=== PATIENT | female | born 1985 | race Caucasian/White ===

== ENCOUNTER 2024-10-27 10:15 | Emergency (ER) | payer SELFPAY ==
--- NOTE | ~2024-10-27 | CT_ITS ---
EXAM: CT brain wo con, CT cervical spine wo con - 10/27/2024 10:20 CDT HISTORY: 39 years old Female with fall COMPARISON: 02/09/2015 PROCEDURE: CT of the head and cervical spine without contrast. Axial, sagittal and coronal reformat darrell planes were evaluated. Automatic exposure control was used for this study. FINDINGS: CT HEAD: BRAIN PARENCHYMA: No acute hemorrhage. No mass effect or herniation. Vanessa-white matter differentiatio n is maintained. Normal appearance of cortex. VENTRICLES/ EXTRA-AXIAL SPACES: No hydrocephalus or extra-axial fluid collection. EXTRACRANIAL STRUCTURES: No calvarial fracture. CT CERVICAL SPINE: No acute fracture or subluxation. Straightening of cervical lordosis, likely positional or may be rel ated to muscle spasm. Multilevel degenerative changes are seen in the cervical spine. Prevertebral so ft tissues are within normal limits. Visualized lung apices are clear. IMPRESSION: 1. No evidence for acute intracranial hemorrhage or calvarial fracture. 2. No evidence for cervical spine fracture or traumatic subluxation. Reviewed, dictated and finalized at location A. IMPRESSION: 1. No evidence for acute intracranial hemorrhage or calvarial fracture. 2. No evidence for cervical spine fracture or traumatic subluxation.
[2024-10-27 10:16] VITALS: BP 97/58; PULSE 72; RESP 16; TEMP 36.6; O2SAT 92
--- NOTE | 2024-10-27 11:03 | PC.NURSE ---
Pt seen by this RN ambulating out of ER with steady gait.
--- OUTSIDE RECORDS SUMMARY | 2024-10-27 13:17 | XMS_ITS | Clinical Summary ---
Author Organization [facility] Address [address] [place] [id number] Care Team Providers Care Superintendent Division Name Role Phone Mario Haider MD Primary Care Provider [phone] Allergies Active Allergy Reactions Criticality Noted Date Comments Penicillins Hives 01/13/2019 Medications No known medications Active Problems Problem Noted Date Diagnosed Date Cellulitis 04/01/2022 Family History Medical History Relation Comments COPD Father Cancer Mother Relation Status Comments Father Alive Mother Alive Social History Tobacco Use Types Packs/Day Years Used Date Smoking Tobacco: Every Day Cigarettes Smokeless Tobacco: Never Tobacco Cessation:Ready to Q uit: Not Asked; Counseling Given: Not Answered Alcohol Use Standard Drinks/Week Comments Not Currently 0 (1 standard drink = 0.6 oz pur e alcohol) Comments No Sex and Gender Information Value Date Recorded Sex Assigned at Not on file Legal Sex Female 4:58 PM CDT Gender Identity Not on file Sexual Orientation Not on file Last Filed Vital Signs Vital Sign Reading Time Taken Comments Blood Pressure 122/80 08/29/2022 3:00 AM CDT Pulse 84 08/29/2022 3:00 AM CDT Temperature 36.2 C (97.2 F) 08/29/2022 3:00 AM CDT Respiratory Rate 16 08/29/2022 3:00 AM CDT Oxygen Saturation 100% 08/29/2022 3:00 AM CDT Inhaled Oxygen Concentration - - Weight 60 kg (132 lb 4.4 oz) 08/29/2022 1:10 AM CDT Height 154.9 cm (5' 1) 08/29/2022 1:10 AM CDT Body Mass Index 24.99 08/29/2022 1:10 AM CDT Plan of Treatment Health Maintenance Due Date Last Done Comments Annual Physical 07/18/1987 Hepatitis C 2002 DTaP, Tdap and Td Vaccines ( 1 - Tdap) 07/18/2003 Hepatitis B Vaccines (1 of 3 - 19+ 3-dose series) 07/18/2003 Pneumococcal Vaccine: Pediat rics (0 to 5 Years) and At-Risk Patients (6 to 49 Years) (1 of 2 - PCV) 07/18/2003 HPV Vaccines (1 - 3-dose SCD M series) 07/18/2011 COVID-19 Vaccine (1 - 2023-2 5 season) 2023 Mammogram Screening 2024 Meningococcal B Vaccine Aged Out No l onger eligible based on patient's age to complete this topic Meningococcal Vaccine Aged Out No ziyad radha eligible based on patient's age to complete this topic RSV Immunizations Under 20 Months Aged Out No longer eligible based on patient's age to complete this topic Insurance [facility] [place] Advance Directives * Full Code (Latest Code Status on File) Date Activated Date Inactivated Comments 04/01/2022 9:43 AM 04/03/2022 1:37 PM Care Teams Superintendent Division Relationship Specialty Start Date End Date Mario Haider MD PCP - General 04/17/15
--- OUTSIDE RECORDS SUMMARY | 2024-10-27 13:17 | XMS_ITS | Continuity of Care Document ---
Author Organization [facility] Address [address] [place] [address] Phone Care Team Providers Care Operations Examiner Name Role Phone Mario Haider MD Unavailable Unavailable Allergies, Adverse Reactions, Alerts Substance Reaction Status Criticality penicillin G Active No Information Medications Medication Instructions Dosage Effective Dates (start - stop) Status Comments Paxil 20 mg tablet take 2 tablet by ora l route every day 40 MG - Active Adderall 20 mg tablet take 1 tablet by o ral route every day before breakfast 20 MG - Active Lamictal 100 mg tablet take 1 tablet by oral route 2 times every day 100 MG - Active Procedures Procedure Date PREV VISIT, EST, AGE 18-39 OFFICE/OUTPATIENT VISIT, EST PREV VISIT, EST, AGE 18-39 OFFICE/OUTPATIENT VISIT, EST OFFICE/OUTPATIENT VISIT, EST OFFICE/OUTPATIENT VISIT, EST OFFICE/OUTPATIENT VISIT, EST PREV VISIT, EST, AGE 18-39 PREV VISIT, EST, AGE 18-39 OFFICE/OUTPATIENT VISIT, EST OFFICE/OUTPATIENT VISIT, EST Advance Directives Directive Yes / No Effective Date File Name No Information Encounters Encounter Description Practice Location Reason(s) For Visit Diagnoses Date Provider Providers Copied on Encounter PREV VISIT, EST, AGE 18-39 [facility], [address] [place], [id number], [place] tel:[phone] [facility] Physical (chief complaint) Encntr for general adult medical exam w/o abnormal findings 201 [address] Vitaly Martin. [address], [place], [place], [id number] , [place]. [phone] Referring Provider: Drea Walker [address], [place], [place], [address]. tel:[phone] OFFICE/OUTPA TIENT VISIT, EST [facility], [place], [address], [place], [place], [id number], [place] tel:[phone] [facility] [place] depression 1 (chief complaint) epilepsy (chief complaint) alcohol abuse1 (chief complaint) Epilepsy, not intractable, without status epilepticusGenerali zed anxiety disorderDepressionA lcohol abuse 6 Vitaly Martin. [address], [place], [place], [address] , [place]. [phone] Referring Provider: Drea Walker [address], [place], [place], [address]. tel:[phone] PREV VISIT, EST, AGE 18-39 [facility] [place], [address], [place], [place], [address], [place] tel:[phone] [facility] [place] PHysical (chief complaint) Encntr for general adult medical exam w/o abnormal findings 6 Vitaly Martin. [address], [place], [place], [address] , [place]. [phone] Referring Provider: Drea Walker [address], [place], [place], [address]. tel:[phone] OFFICE/OUTPA TIENT VISIT, EST [facility] [place], [address], [place], [place], [address], [place] tel:[phone] [facility] [place] seizure1 (chief complaint) seizure (chief complaint) GI (chief complaint) SOB (chief complaint) Generalized anxiety disorderEpilepsy, unspecified, not intractable, without status epilepticus 6 Vitaly Martin. [address], [place], [place], [address] , [place]. [phone] Referring Provider: Mario Haider, [address], [place], [place], [address]. tel:[phone] OFFICE/OUTPA TIENT VISIT, [facility], [address], [place], [place], [address], [place] tel:[phone] [facility] [place] stomach (chief complaint) seizure (chief complaint) seizure1 (chief complaint) anxiety1 (chief complaint) Generalized abdominal painGeneralized (acute) peritonitisGenerali zed anxiety disorderEpilepsy, not intractable, without status epilepticus 5 Vitaly Martin. [address], [place], [place], [address] , [place]. [phone] Referring Provider: Drea Walker [address], [place], [place], [address]. tel:[phone] OFFICE/OUTPA TIENT VISIT, [facility], [address], [place], [place], [address], [place] tel:[phone] [facility] [place] cough (chief complaint) cold sore (chief complaint) Anxiety (chief complaint) seizure (chief complaint) Generalized anxiety disorderEpilepsyAcu te bronchitisCold sores 5 Vitaly Martin. [address], [place], [place], [address] , [place]. [phone] Referring Provider: Drea Walker [address], [place], [place], [address]. tel:[phone] OFFICE/OUTPA TIENT VISIT, [facility], [address], [place], [place], [address], [place] tel:[phone] [facility] [place] back pain (chief complaint) anxiety (chief complaint) seizure (chief complaint) Epilepsy, unspecified, without mention of intractable epilepsyGeneralized anxiety disorderLumbagoVita min deficiency 5 Vitaly Simmons [address], [place], [place], [address] , [place]. tel:[phone] Referring Provider: Drea Walker [address], [place], [place], [address]. tel:[phone] PREV VISIT, EST, AGE 18-39 [facility] [place], [address], [place], [place], [address], [place] tel:[phone] [facility] PHysical (chief complaint) Routine Medical ExamRoutine Medical Exam 5 Vitaly Martin. [address], [place], [place], [address] , [place]. tel:[phone] Referring Provider: Mario Haider [address], [place], [place], [address]. tel:[phone] PREV VISIT, EST, AGE 18-39 [facility] [place], [address], [place], [place], [address], [place] tel:[phone] [facility] Physical (chief complaint) Routine Medical ExamRoutine Medical Exam 3 Vitaly Martin. [address], [place], [place], [address] , [place]. tel:[phone] Referring Provider: Mario Haider, [address], [place], [place], [address]. tel:[phone] OFFICE/OUTPA TIENT VISIT, EST [facility] [place], [address], [place], [place], [address], [place] tel:[phone] [facility] [place] toothache (chief complaint) Atypical face pain 2 Vitaly Martin. [address], [place], [place], [address] , [place]. tel:[phone] Referring Provider: Mario Haider [address], [place], [place], [address]. tel:[phone] OFFICE/OUTPA TIENT VISIT, EST [facility] [place], [address], [place], [address], [place] tel:[phone] [facility] anxiety (chief complaint) Generalized anxiety disorderEpilepsy, unspecified, without mention of intractable epilepsy 2 Vitaly Martin. [address], [place], [place], [address] , [place]. tel:[phone] Referring Provider: Drea Walker [facility] [address], [place], [place], [address]. tel:[phone] Family History Family Member Type Diagnosis Age At Onset Mother Problem (finding) Alive and well Sister Problem (finding) Depression Father Problem (finding) Seizure disorder Payers Payer name Insurance type Covered republican ID Authoriza tion(s) No Information Social History Type Description Quantity Date Captured Comments Alcohol Use Details Caffeine Use Details Unknown Tobacco Use Status Smoker Smoking Status Current some day smoker 017 Sex Female Vital Signs Date / Time: Height Weight BMI Pulse Rate Blood Pressure Temperature Respiratory Rate Body Surface Area Head Circumference BMI percentile Pulse Ox Inhaled Ox 2:34 PM 157.48 cm 109.60 lbs 20.0 5 kg/m eter (2) 91 /min 114/78 mm[Hg] 98.0 F 16 /min Chief Complaint And Reason For Visit From encounter dated '12/18/2016 13:45'. Physical (chief complaint). Description: Pt needs annual physical. Pt has chronic anxiety and depression. Pt takes paxil. Pt denies any suicidal or homicidal thought. Pt denies any crying spells. Pt sees psychiatrist and she is getting adderall from her psychiatrist for ADD. Pt also has pseudoseizure. Pt had seizure again two week ago. Pt apparently had grand mal seizure. Pt just moved back from [place]. Pt was seeing neurology at [place] and had some testing but she has no idea what the name of the nurologist and what the testing she had? Pt wants lamictal again. Pt is off keppra. Pt denies any other compalints Plan Of Treatment Date Type Action Status Goal Tobacco cessation counseling completed Goal Tobacco cessation counseling completed Goal Tobacco cessation counseling completed Goal Tobacco cessation counseling completed Referral Ordered: Jeaneth Finn (related to Encounter for general adult medical exam w abnormal findings) ordered Referral Referred To: Jeaneth Finn [address] [place], [phone] Ordered: Referrals: Jeaneth Finn. Evaluate and treat ordered Referral Ordered: Gastroenterology (related to Generalized (acute) peritonitis) ordered Referral Ordered: OBSTRUCTIVE SERIES XRAY ordered Referral Ordered: Referrals: Gastroenterology. Evaluate and treat ordered Referral Ordered: Physical Therapy ordered Referral Ordered: LUMBAR XRAY AP AND LAT ONLY ordered Referral Referred To: Physical Therapy Ordered: Referral: Physical Therapy. ordered History Of Present Illness Encounter Date Complaint History Of Prese nt Illness Physical Pt needs annual physical. Pt has chronic anxiety and depression. Pt takes paxil. Pt denies any suicidal or homicidal thought. Pt denies any crying spells. Pt sees psychiatrist and she is getting adderall from her psychiatrist for ADD. Pt also has pseudoseizure. Pt had seizure again two week ago. Pt apparently had grand mal seizure. Pt just moved back from [place]. Pt was seeing neurology at [place] and had some testing but she has no idea what the name of the nurologist and what the testing she had? Pt wants lamictal again. Pt is off keppra. Pt denies any other compalints alcohol abuse1 Pt recenlty went to ER for alcohol abuse and also seizure. Pt told me she drinks alcohol to help her with severe anxeity and sterss. Pt told me she will not drink alcohol if she has stronger anxiety meds epilepsy Additional infor claudia: Pt tani made appointment to see neurologist at [facility]. depression1 Pt has chronic a nxiety and depression. Pt was recently admited to hospital for suicidal thought and also seizure? Pt was diagnosed with psychiatric pseudoseizure and she was on suidical watch lately. Pt states that she has severe stress and anxiety and she needs something stronger than ativan? Pt denies any suicidal or homicidal thought now PHysical Pt needs annual physical. Pt has history of recurrent grand mal seizure. Pt has not had any seizure for 3 months until recently. Pt went to [place] [facility]. Pt takes lamictal 100 mg BID. Pt been to mutiple neurologists in the past. She states that all neurologist told her that there is nothing wrong with her?? Pt told me she had MRI of brain and EEG done back in April at [facility] and she seen a neurologist as an outpatient but she has no idea the name of the neurologist. Pt is extremely poor historian. Pt denies any headahe. Pt also has chornic anxiety an ddepression and she takes paxil and doing ok. PT denie sany suicidal or homicidal thought. SOB Pt has frequent SOB Pt smokes. Pt uses inhaler PRN PT denies any acute SOB. Pt feels SOB 2-3 times per day. seizure Additional infor claudia: Pt has recurrent seizure,. Pt has been to multiple ER recently and she seen a neurologist whom she does not know the name and was started on a different seizure meds which she also does not know the name. Pt has not had any seizure for 4 weeks now. seizure1 Pt has chronic a nxiety and depression. Pt has been out of paxil and xanax for a while. Pt denies any suicidal or homicidal thought. Pt no longer takes xanax. She is on ativan now due to recurrent seizures. GI Pt denies any GI symptoms anymore. Pt supposes to have colonoscopy but she never did. Pt does not have any symptoms anymore. NO abd pain anxiety1 Pt has chronic a nxiety and depression. Pt takes paxil and xanax and doing ok. Pt denies any suicidal or homicidal thought. Pt denies any crying spells. Pt denies feeling of hopelessness seizure1 Pt has history o f seizure. Pt has been on keppra for several at least 6 months. Pt has not had any seizure. Pt recently was admited n hospital due to perotonitis due to vaginal cuff infection and she appararently had a brief syncope episodes. Pt did not have any confirmed seizure. Pt was restarted on depakote again in hospital. Pt does not want depakote seizure stomach Pt had partial h ysterectomy on 11/30/14. Pt was doing ok until last Friday. She went to ER due to blood vomitus and severe low pelvic pain. Pt was found to have vaginal cuff tear. Her MEAT WASHER subsequently repaired it. Pt was planned to be discharged the next day and then she had a breif syncope episode. Pt was found to have ileus. NG tube placed. Pt currntly feels full all the time and her stomach feels distended, Pt denies any nausea, vomiting. Pt is able to keep food and water down. Pt still taking levaquin and flagyl. Pt has been having nonbloody watery diarrhea. Pt states that she has not been passing gas. Pt feels gas pain around stomach,. No fever, chill seizure Additional infor mation: Pt denies any seizure for seveal months. Anxiety The patient pres ents with anxious/fearful thoughts but denies fatigue. The patient denies any headache, vomiting and weight gain. Additional information: Pt has chronic anxiety and depression Pt takes paxil and xanax. pt denies any suicidal thought. cold sore PT notices a col d sore on top of lip for several days with some numbness and tingling around the upper lip area cough Associated sympt oms include cough. Pertinent negatives include dyspnea, fatigue, fever, night sweats, sinus pressure, sore throat, weight loss and wheezing. Additional information: Pt has acute coughing with phlem for several days. pt notices clear and yellow phlem. pt denies any sore throat or any sinus problem. Pt denies any fever. seizure Additional infor mation: Pt is taking keppra. No seizure. anxiety Additional infor mation: Pt has chronic aniety and depression. Pt takes paxil and xanax and doing ok. Pt denies any suicidal thought. back pain Additional infor mation: Pt has chornic LBP. Pt states that someday she canot get out of bed. Pt denies any loss of bowel or bladder control Pt has sciatica. Instructions Date Instruction Additional Infor mation Quit smoking. Related to Encnt r for general adult medical exam w/o abnormal findings self relaxatoin technique Relate d to Generalized anxiety disorder Assessments Type Assessment Date assessment Encntr for general adult medical exam w/o abnormal findings Mental Status Date Cognitive Assessment Orientation - [place] ed to time, place, person, situation.
== END 2024-10-27 13:18 | disposition left against medical advice (07) ==
LOC: ANHED 13:10
PROVIDERS: Emergency Provider Emergency Medicine; PCP Emergency Medicine
DX: T14.90XA Injury, unspecified, initial encounter (principal)
CPT/HCPCS: 70450; 72125; 99199